=== PATIENT | female | born 2000 | race Caucasian/White ===

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

== ENCOUNTER → 2020-04-18 | Outpatient (CLI) | payer BC | END | disposition home or self-care (01) | LOC: COVID19 09:17 | PROVIDERS: ATTEND Student in an Organized Health Care Education/Training Program | DX: U07.1 COVID-19 (principal) ==